=== PATIENT | female | born 1950 | race Caucasian/White ===

== ENCOUNTER 2018-12-10 09:34 | Outpatient (CLI) | payer BC, MEDICARE ==
[2018-12-10] MEDS ORDERED: CHOL10003 PO (10:17)
[2018-12-10] MEDS ORDERED: VIT1CAPS42 PO (10:17)
[2018-12-10] MEDS ORDERED: NAPR220C2 PO (10:17)
[2018-12-10] MEDS ORDERED: LOVA20TA2 PO (10:17)
[2018-12-10] MEDS ORDERED: QUIN1TAB15 PO (10:17)
[2018-12-10 10:59] LABS: MICROSCOPIC AUTO
[2018-12-10 11:01] LABS: CULTURE INDICATED? YES
[2018-12-10 11:03] LABS: BASOPHILS # (AUTO) 0.04 x10^3/uL (0-0.1); BASOPHILS % (AUTO) 1 % (0-1); EOSINOPHILS # (AUTO) 0.21 x10^3/uL (0-0.4); EOSINOPHILS % (AUTO) 2 % (1-7); LYMPHOCYTES # (AUTO) 1.56 x10^3/uL (1-3.4); LYMPHOCYTES % (AUTO) 17 % (22-44); MD NO; MEAN CORPUSCULAR HEMOGLOBIN 28.5 pg (27.0-34.8); MEAN CORPUSCULAR HGB CONC 33.4 g/dL (32.4-35.8); MEAN CORPUSCULAR VOLUME 85.4 fL (80-100); MEAN PLATELET VOLUME 7.7 fL (7.4-10.4); MONOCYTES # (AUTO) 0.78 x10^3/uL (0.2-0.8); MONOCYTES % (AUTO) 9 % (2-9); NEUTROPHILS # (AUTO) 6.53 x10^3/uL (1.8-6.8); NEUTROPHILS % (AUTO) 72 % (42-75); PLATELET COUNT 514 x10^3/uL (130-400); RED BLOOD COUNT 4.07 x10^6/uL (3.82-5.3); RED CELL DISTRIBUTION WIDTH 16.1 % (9.6-15.2)
[2018-12-10 11:14] LABS: ALANINE AMINOTRANSFERASE 23 U/L (12-78); ALBUMIN 3.5 g/dL (3.4-5.0); ANION GAP 8 mmol/L (5-15); CALCIUM 8.9 mg/dL (8.5-10.1); CHLORIDE 102 mmol/L (98-107); CREATININE 0.72 mg/dL (0.55-1.02)
[2018-12-10 11:19] LABS: ALKALINE PHOSPHATASE 97 U/L (45-117); BILIRUBIN,TOTAL 0.7 mg/dL (0.2-1.0)
== END 2018-12-10 23:59 | disposition home or self-care (01) ==
LOC: STAR 09:34
PROVIDERS: ATTEND Obstetrics & Gynecology
DX: Z01.818 Encounter for other preprocedural examination (principal); N95.0 Postmenopausal bleeding; N84.0 Polyp of corpus uteri; Z88.5 Allergy status to narcotic agent
CPT/HCPCS: 36415; 71046; 80053; 81001; 84702; 85025; 87086; 93005

== ENCOUNTER 2018-12-16 05:55 | Day surgery (SDC) | payer BC, MEDICARE ==
[2018-12-10 10:18] VITALS: BP 146/91
[~2018-12-16] VITALS: Ht 160 cm; Wt 91.0 kg
[~2018-12-16 05:55] MED LIST: CHOL10003 PO; LOVA20TA2 PO; NAPR220C2 PO; QUIN1TAB15 PO; VIT1CAPS42 PO
[2018-12-16] MEDS ORDERED: LACTATED RINGERS 1,000 ML IV SCH (06:47)
[2018-12-16] MEDS ORDERED: CEPH-376 PO (06:50)
[2018-12-16] MEDS ORDERED: SULF1TAB24 PO (06:50)
[2018-12-16 06:51] VITALS: BP 146/91
[2018-12-16] MEDS ORDERED: SILVER NITRATE STICK TP ONE (07:17)
[2018-12-16] MEDS ORDERED: ACETAMINOPHEN 500 MG TABLET ONE (07:17)
[2018-12-16] MEDS ORDERED: BUPIVACAINE/PF 0.25% ONE (07:17)
[2018-12-16] MEDS ORDERED: EPINEPHRINE 1 MG/ML, 1ML ONE (07:17)
[2018-12-16] MEDS ORDERED: FENTANYL PF 250 MCG/5ML ONE (07:21)
[2018-12-16] MEDS ORDERED: MIDAZOLAM 1 MG/ML, 2ML ONE (07:21)
[2018-12-16] MEDS ORDERED: DEXAMETHASONE 4 MG/ML, 1ML ONE (07:27)
[2018-12-16] MEDS ORDERED: ROCURONIUM 10 MG/ML,10ML ONE (07:27)
[2018-12-16] MEDS ORDERED: SUCCINYLCHOLINE 20 MG/ML, 10ML ONE (07:27)
[2018-12-16] MEDS ORDERED: CEFAZOLIN 1,000 MG ONE (07:27)
[2018-12-16] MEDS ORDERED: ONDANSETRON 2MG/ML, 2ML ONE (07:27)
[2018-12-16] MEDS ORDERED: PROMETHAZINE 25 MG/ML, 1ML IV PRN (07:30)
[2018-12-16] MEDS ORDERED: PROCHLORPERAZINE 5 MG/ML, 2ML IV PRN (07:30)
[2018-12-16] MEDS ORDERED: FENTANYL PF 100 MCG/2ML IV PRN (07:30)
[2018-12-16] MEDS ORDERED: OXYcodone 5 MG/5 ML ORAL.SOL UDC PO PRN (07:30)
[2018-12-16] MEDS ORDERED: HYDROmorphone 2 MG/ML, 1ML IVPush PRN (07:30)
[2018-12-16] MEDS ORDERED: LABETALOL 5MG/ML, 20ML IV PRN (07:30)
[2018-12-16] MEDS ORDERED: hydrALAzine 20 MG/ML, 1ML IV PRN (07:30)
[2018-12-16] MEDS ORDERED: MEPERIDINE/PF 25MG/0.5ML IVPush PRN (07:30)
[2018-12-16] MEDS ORDERED: ACETAMINOPHEN 500 MG TABLET PO ONE (07:30)
[2018-12-16] MEDS ORDERED: DIPHENHYDRAMINE 50 MG/ML, 1ML IVPush PRN (07:30)
[2018-12-16] MEDS ORDERED: METOPROLOL 1 MG/ML, 5ML IV PRN (07:30)
[2018-12-16] MEDS ORDERED: VASOPRESSIN 20 UNIT/ML, 1ML IM ONE (07:49)
[2018-12-16] MEDS ORDERED: PROPOFOL 100 ML ONE (08:02)
[2018-12-16] MEDS ORDERED: OXYcodone 5 MG/5 ML ORAL.SOL UDC ONE (08:52)
[2018-12-16] MEDS ORDERED: KETOROLAC 30 MG/1 ML ONE (08:52)
[2018-12-16] MEDS ORDERED: KETOROLAC 30 MG/1 ML IVPush ONE ×2 (09:00→09:30)
[2018-12-16 09:41] LABS: ALANINE AMINOTRANSFERASE 18 U/L (12-78); ALBUMIN 2.9 g/dL (3.4-5.0); ANION GAP 7 mmol/L (5-15); CALCIUM 8.2 mg/dL (8.5-10.1); CHLORIDE 110 mmol/L (98-107); CREATININE 0.73 mg/dL (0.55-1.02)
[2018-12-16 09:44] LABS: ALKALINE PHOSPHATASE 82 U/L (45-117); BILIRUBIN,TOTAL 0.3 mg/dL (0.2-1.0); TOTAL PROTEIN 6.9 g/dL (6.4-8.2)
== END 2018-12-16 11:30 | disposition home or self-care (01) ==
LOC: OUT 05:55
PROVIDERS: ATTEND Obstetrics & Gynecology
DX: D25.0 Submucous leiomyoma of uterus (principal); N95.0 Postmenopausal bleeding; I10 Essential (primary) hypertension; E78.00 Pure hypercholesterolemia, unspecified; Z96.649 Presence of unspecified artificial hip joint; Z96.659 Presence of unspecified artificial knee joint; Z88.5 Allergy status to narcotic agent; Z98.890 Other specified postprocedural states
CPT/HCPCS: 36415; 58558; 80053; 86850; 86900; 88305; J0330; J0690; J1100; J1885; J2250; J2405; J2704; J3010; J7120; J0171; J3490

== ENCOUNTER 2019-01-27 08:08 | Outpatient (CLI) | payer BC ==
[~2019-01-27 08:08] MED LIST changes: +CEPH-376 PO; +SULF1TAB24 PO
[2019-02-04] MEDS ORDERED: KETO10TA PO (08:37)
== END 2019-01-27 23:59 | disposition home or self-care (01) ==
LOC: STAR 08:08
PROVIDERS: ATTEND Obstetrics & Gynecology
DX: Z02.9 Encounter for administrative examinations, unspecified (principal)